=== PATIENT | male | born 1975 | race Caucasian/White ===

== ENCOUNTER 2018-04-16 09:46 | Emergency (ER) | payer BC ==
[~2018-04-16] VITALS: Ht 167.6 cm; Wt 111.1 kg
--- NOTE | 2018-04-16 09:57 | PHYS DOC ---
Past Medical History Past Medical History: No Pertinent History Adult General Chief Complaint Chief Complaint: NOSEBLEED HPI HPI Patient is a pleasant 42-year-old male who presents to the emergency department for evaluation. He states that this morning prior to leaving the house he developed some nose bleeding on the right side. He states was able to get it stopped, but when he went to work he began having bleeding again. The bleeding was brisk and when he laid his head back and started coming out of both sides. He states he has had nosebleeds in the past but not for many years, and never this severe. He does not take any anticoagulants, and denies any other pain or direct trauma. He has no other complaints at this time. Denies any dizziness or lightheadedness. He has not had any other easy bleeding or bruising. Review of Systems Review of Systems Constitutional: Denies fever or chills [] Eyes: Denies change in visual acuity, redness, or eye pain [] HENT: Denies nasal congestion or sore throat [] Respiratory: Denies cough or shortness of breath [] Neurologic: Denies headache, focal weakness or sensory changes. Denies dizziness or lightheadedness. [] Endocrine: Denies polyuria or polydipsia [] Allergies Allergies Allergies Coded Allergies Type Severity Reaction Last Updated Verified No Known Drug Allergies 04/16/18 No Physical Exam Physical Exam PHYSICAL EXAM: CONSTITUTIONAL: Well developed, well nourished HEAD: normocephalic, atraumatic EENT: PERRL, EOMI. Conjunctivae normal color, sclerae non-icteric; moist mucous membranes. There is no active bleeding from the nose, there is no obvious source of recent bleeding. There is no blood in the oropharynx. NECK: Supple, non-tender; no meningismus. LUNGS: Lungs CTA, breathing even and unlabored. Normal air movement. HEART: Regular rate and rhythm, no murmur CHEST: No deformity; non-tender ABDOMEN: The abdomen is soft, and non-tender, no masses or bruits. EXTREM: Normal ROM; no deformity, no calf tenderness. Normal pulses palpable in all extremities. There is no pedal edema. SKIN: No rash; no diaphoresis NEURO: Alert; normal speech and cognition; CN's grossly intact; strength grossly intact without focal deficit. BACK: No CVA TTP. Current Patient Data Vital Signs Vital Signs Date Time Temp Pulse Resp B/P (MAP) Pulse Ox O2 Delivery O2 Flow Rate FiO2 04/16/18 10:09 98.1 85 20 144/77 (99) 92 Room Air 98.1 EKG EKG [] Radiology/Procedures Radiology/Procedures [] Course & Med Decision Making Course & Med Decision Making 10:40 AM: The patient's condition remains stable. He has had no further bleeding. I discussed expectant management, the use of humidified agents, and return precautions. Dragon Disclaimer Dragon Disclaimer This electronic medical record was generated, in whole or in part, using a voice recognition dictation system. Departure Departure Impression: Primary Impression: Radha Disposition: 01 HOME, SELF-CARE Condition: STABLE Referrals: DENNIS GONZALEZ MD Patient Instructions: SALVADOR Bradley MD Apr 16, 2018 09:57
[2018-04-16 10:57] VITALS: BP 144/77
== END 2018-04-16 10:56 | disposition home or self-care (01) ==
LOC: ER 09:46
DX: R04.0 Epistaxis (principal)
CPT/HCPCS: 99281